=== PATIENT | female | born 1995 | race Caucasian/White ===

== ENCOUNTER 2017-12-27 10:31 | Emergency (ER) | payer OTHER ==
[~2017-12-27] VITALS: Ht 154.9 cm; Wt 68.5 kg
[2017-12-27 10:42] VITALS: TEMP 36.6; Ht 154.9 cm; Wt 68.5 kg
--- NOTE | 2017-12-27 11:19 | DIAGNOSTIC IMAGING REPORT ---
RIGHT HAND 3 VIEWS CLINICAL HISTORY: Fall with right hand injury. FINDINGS: 3 views of the right hand are obtained. No prior studies are available for comparison at the time of dictation. The skeletal structures are well mineralized. No fracture is seen. The joint spaces of the hand are preserved. Mild dorsal soft tissue swelling is noted. IMPRESSION: There is no radiographic evidence of right hand fracture. Electronically signed by: Tato Taylor M.D. 12/27/2017 11:18 AM Dictated Date/Time: 12/27/2017 11:17 AM
--- NOTE | 2017-12-27 11:31 | EMERGENCY ROOM VISIT NOTE ---
ED Visit Note First contact with patient: 10:35 CHIEF COMPLAINT: Right hand injury HISTORY OF PRESENT ILLNESS: This 22-year-old female patient injured the right hand when she tripped down steps and tried to catch herself with her right hand which was in a fist position. This occurred late Monday evening.. The pain is constant, moderate, and worse with any movement of the hand. The patient is right-hand dominant. There was no audible cracking sound at the time of the injury. REVIEW OF SYSTEMS: GENERAL: 6 system review was performed and was negative unless stated otherwise in history of present illness. PMH: The patient is healthy; there is no significant medical or surgical history. SOCIAL HISTORY: Patient lives with her host family. The patient denies any tobacco or alcohol use. PHYSICAL EXAM: Vital Signs: Were reviewed reviewed Nurse's notes. GENERAL: 22- year-old female appears in no acute distress. MENTAL Status: Alert and oriented 3. RIGHT HAND: The patient has erythema, edema and ecchymosis over the dorsal aspect of the third through fifth metacarpals extending into the phalanges. The skin is intact. Flexion and extension of the fingers is full and strong. Good capillary refill. EMERGENCY DEPARTMENT COURSE: The patient was evaluated. X-ray of the right hand was or interpreted by the radiologist and myself as below. DIAGNOSTICS:RIGHT HAND 3 VIEWS CLINICAL HISTORY: Fall with right hand injury. FINDINGS: 3 views of the right hand are obtained. No prior studies are available for comparison at the time of dictation. The skeletal structures are well mineralized. No fracture is seen. The joint spaces of the hand are preserved. Mild dorsal soft tissue swelling is noted. IMPRESSION: There is no radiographic evidence of right hand fracture. Electronically signed by: Tato Taylor M.D. 12/27/2017 11:18 AM The patient was informed of the findings. The patient was discharged home in stable condition. DIAGNOSIS: Right hand contusion DISCHARGE INSTRUCTIONS & TREATMENT: Rest the hand and keep it inactive for 2 to 3 days until the pain and swelling subside. Ibuprofen, 600 mg every 6 hours for pain. Keep the hand elevated when possible. Vital Signs Date Time Temp Pulse Resp B/P (MAP) Pulse Ox O2 Delivery O2 Flow Rate FiO2 12/27/17 10:42 36.6 106 20 145/96 99 Room Air Departure Information Patient Instructions [facility]
[2017-12-27 11:38] VITALS: BP 130/87; PULSE 91; O2SAT 100
== END 2017-12-27 11:38 | disposition home or self-care (01) ==
LOC: C.EDB 10:36 → C.EDD 11:38
DX: S60.221A Contusion of right hand, initial encounter (principal); W22.8XXA Striking against or struck by other objects, initial encounter